=== PATIENT | male | born 1985 | race Caucasian/White ===

== ENCOUNTER 2017-07-25 18:10 | Emergency (ER) | payer OTHER ==
[~2017-07-25] VITALS: Ht 182.9 cm; Wt 95.0 kg
[2017-07-25 18:14] VITALS: BP 139/89
[2017-07-25] MEDS ORDERED: KETO10TA2 PO (18:35)
[2017-07-25] MEDS ORDERED: CYCL-1 PO (18:35)
[2017-07-25] MEDS ORDERED: orphenadrine citrate 60mg/2ml inj. IM ONE (18:35)
[2017-07-25] MEDS ORDERED: ketorolac trometh inj. 60 MG/2 ML VIAL IM ONE (18:35)
== END 2017-07-25 18:51 | disposition home or self-care (01) ==
LOC: ER 18:11
DX: S29.012A Strain of muscle and tendon of back wall of thorax, initial encounter (principal); M62.830 Muscle spasm of back; Z88.8 Allergy status to other drugs, medicaments and biological substances; X50.9XXA Other and unspecified overexertion or strenuous movements or postures, initial encounter; Y93.89 Activity, other specified; Y92.89 Other specified places as the place of occurrence of the external cause; Y99.8 Other external cause status
CPT/HCPCS: 96372; 99284; J1885; J2360

== ENCOUNTER 2020-03-15 09:55 | Emergency (ER) | payer MEDICAID, OTHER ==
[~2020-03-15] VITALS: Ht 182.9 cm; Wt 104.5 kg
[~2020-03-15 09:55] MED LIST: CYCL-1 PO; KETO10TA2 PO
[2020-03-15 10:07] VITALS: BP 155/99
[2020-03-15] MEDS ORDERED: TRIA15CR61 TOP (11:08)
== END 2020-03-15 11:39 | disposition home or self-care (01) ==
LOC: ER 09:55
DX: T23.402A Corrosion of unspecified degree of left hand, unspecified site, initial encounter (principal); T23.401A Corrosion of unspecified degree of right hand, unspecified site, initial encounter; L23.9 Allergic contact dermatitis, unspecified cause; Z88.8 Allergy status to other drugs, medicaments and biological substances; Z79.899 Other long term (current) drug therapy; Y93.89 Activity, other specified; Y92.89 Other specified places as the place of occurrence of the external cause; Y99.8 Other external cause status
CPT/HCPCS: 99283